=== PATIENT | female | born 1970 | race African-American/Black ===

== ENCOUNTER 2018-05-26 17:21 | Emergency (ER) | payer OTHER, SELFPAY ==
[2018-05-26] MEDS ORDERED: Metoclopramide HCl 10 MG/2 ML VIAL ONE (18:19)
[2018-05-26] MEDS ORDERED: Acetaminophen 500 MG TAB ONE (18:19)
[2018-05-26] MEDS ORDERED: diphenhydrAMINE 50 MG/ML VIAL ONE (18:19)
--- NOTE | 2018-05-26 19:09 | CT ---
CT BRAIN: HISTORY: Headaches. TECHNIQUE: Noncontrast enhanced CT images of the brain obtained. FINDINGS: The brain is unremarkable. No evidence of intracranial masses, hemorrhages, strokes, or contusions i s seen. The ventricles are of normal size. IMPRESSION: Normal CT brain. POS: [facility]
[2018-05-26] MEDS ORDERED: Ketorolac Tromethamine 30 MG/ML VIAL ONE (19:52)
== END 2018-05-26 20:05 | disposition home or self-care (01) ==
LOC: ERS 17:21
DX: G43.909 Migraine, unspecified, not intractable, without status migrainosus (principal); E03.9 Hypothyroidism, unspecified; E66.9 Obesity, unspecified; Z79.899 Other long term (current) drug therapy
CPT/HCPCS: 70450; 96365; 96375; J1200; J1885; J2765

== ENCOUNTER 2018-06-18 13:28 | Outpatient (CLI) | payer OTHER ==
[~2018-06-18 13:28] MED LIST: Gadobenate Dimeglumine 529 MG/1 ML (20ML VIAL) ONE
--- NOTE | 2018-06-18 16:05 | MRI ---
MRI BRAIN WITH AND WITHOUT CONTRAST: DATE: 06-18-18 HISTORY: 48-year-old female with G44.5 - newly daily persistent headache. TECHNIQUE: Multiple sequences obtained in axial, sagittal, and coronal planes; pre and post IV injection of gado linium-based contrast agent FINDINGS: The ventricles are normal in size and configuration. There is no major intraaxial signal abnormality , restricted diffusion, abnormal intraaxial enhancement, mass, midline shift or any other mass effect , recent intraaxial hemorrhage, or extraaxial fluid collection. IMPRESSION: Normal. lolis POS: [facility]
== END 2018-06-18 13:29 | disposition home or self-care (01) ==
LOC: BICMRI 13:28
PROVIDERS: ATTEND Family Medicine
DX: G44.52 New daily persistent headache (NDPH) (principal)
CPT/HCPCS: 70553; A9579

== ENCOUNTER 2019-01-21 18:35 | Emergency (ER) | payer OTHER ==
[~2019-01-21 18:35] MED LIST changes: -Gadobenate Dimeglumine 529 MG/1 ML (20ML VIAL) ONE; +ISOVUE-370 76%-LOCM 1 ML ONE
[2019-01-21 19:45] LABS: #Eosinphils 0.2 thou/uL (0.0-0.7); #Lymphocytes 4.8 thou/uL (1.20-3.40); #Monocytes 0.9 thou/uL (0.11-0.59); %Basophils 0.2 % (0.0-1.0); %Eosinophils 1.2 % (0.0-10.0); %Lymphocytes 37.5 % (21.0-51.0); %Monocytes 6.8 % (0.0-10.0); %Neutrophils 54.3 % (42.0-75.0); Hemoglobin 11.7 g/dL (12.0-16.0); Mean Corpuscular HGB CONC 30.8 g/dL (32.0-36.0); Mean Corpuscular Hemoglobin 27.3 pg (27.0-31.0); Mean Corpuscular Volume 88.5 fL (78.0-98.0); Mean Platelet Volume 7.7 fL (7.4-10.4); Platelet Count 253 thou/uL (130-400); RBC Distribution Width 13.5 % (11.5-14.5); White Blood Cell (WBC) Count 12.9 thou/uL (4.8-10.8)
[2019-01-21 20:13] LABS: ALT (SGPT) 10 U/L (8-55); AST (SGOT) 12 U/L (5-34); Albumin 3.2 g/dL (3.5-5.0); Alkaline Phosphatase 54 U/L (40-150); Anion Gap 12 mmol/L (10-20); BUN (Urea Nitrogen) 10 mg/dL (7.0-18.7); Bilirubin, Total Less than 0.2 mg/dL (0.2-1.2); Calc. Creatinine Clearance 0 mL/min (70-130); Calcium 7.8 mg/dL (7.8-10.44); Carbon Dioxide 25 mmol/L (22-29); Chloride 104 mmol/L (98-107); Estimated GFR-MDRD Greater than 90; Globulin 2.5 g/dL (2.4-3.5); Glucose 95 mg/dL (70-105); Potassium 4.2 mmol/L (3.5-5.1); Protein, Total 5.7 g/dL (6.0-8.3); Sodium 137 mmol/L (136-145)
--- NOTE | 2019-01-21 20:17 | CT ---
CT ABDOMEN AND PELVIS WITH IV CONTRAST: 01/21/19 HISTORY: Diarrhea, hematochezia, left lower quadrant abdominal pain. COMPARISON: 02/20/12 FINDINGS: There is minimal infiltrate in the left lung base. The liver, spleen, pancreas, adrenal glands and ki dneys are normal. The gallbladder is contracted. No free air or lymphadenopathy is seen in the abdome n or pelvis. The small bowel loops are not abnormally dilated. No pericolonic inflammatory changes ar e seen. A normal appearing appendix is present. The patient is post hysterectomy. A 2.5 cm left adnexal cystic mass is seen likely ovarian. A small amount of free fluid is noted in the pelvis. No evidence of aneurysmal dilatation of the abdominal ao rta is seen. No osteolytic or osteoblastic lesions are noted. IMPRESSION: 1. Mild infiltrate in the left lung base. 2. 2.5 cm left adnexal cyst, likely ovarian and small amount of free fluid in the pelvis. POS: [facility]
== END 2019-01-21 21:26 | disposition home or self-care (01) ==
LOC: ERS 18:35
DX: J18.9 Pneumonia, unspecified organism (principal); I10 Essential (primary) hypertension; E03.9 Hypothyroidism, unspecified; E66.9 Obesity, unspecified; G43.909 Migraine, unspecified, not intractable, without status migrainosus; Z79.899 Other long term (current) drug therapy; Z79.84 Long term (current) use of oral hypoglycemic drugs
CPT/HCPCS: 36415; 74177; Q9966

== ENCOUNTER 2021-01-10 06:02 | Day surgery (SDC) | payer OTHER ==
[2021-01-09 13:55] VITALS: BMI 46.6
[2021-01-10] MEDS ORDERED: Lidocaine 1% PF 5 ML VIAL ONE (08:22)
[2021-01-10] MEDS ORDERED: PROPOFOL 200 MG/20 ML VIAL ONE (08:22)
== END 2021-01-10 09:50 | disposition home or self-care (01) ==
LOC: SDC 06:02
PROVIDERS: ATTEND Internal Medicine Gastroenterology
DX: Z12.11 Encounter for screening for malignant neoplasm of colon (principal); D12.2 Benign neoplasm of ascending colon; D12.4 Benign neoplasm of descending colon; K57.30 Diverticulosis of large intestine without perforation or abscess without bleeding; Z88.6 Allergy status to analgesic agent; Z87.19 Personal history of other diseases of the digestive system; Z79.84 Long term (current) use of oral hypoglycemic drugs; Z79.899 Other long term (current) drug therapy
CPT/HCPCS: 88305; J2704

== ENCOUNTER 2023-08-28 09:47 | Outpatient (CLI) | payer OTHER | END 2023-08-28 09:48 | disposition home or self-care (01) | LOC: BICMAMMO 09:47 | PROVIDERS: ATTEND Family Medicine | DX: Z12.31 Encounter for screening mammogram for malignant neoplasm of breast (principal) | CPT/HCPCS: 77063; 77067 ==